=== PATIENT | female | born 1945 | race Caucasian/White ===

== ENCOUNTER 2020-06-23 11:04 | Outpatient (REF) | payer MEDICARE, SELFPAY ==
[2020-06-23 12:40] LABS: MANUAL DIFF FLAG NO
[2020-06-23 12:41] LABS: Basophils Percent Auto 0.7 % (0-2); Eosinophils Absolute Auto 0.2 X10*3/uL (0.0-0.4); Eosinophils Percent Auto 3.1 % (0-4); Hematocrit 42.1 % (37-47); Hemoglobin 13.7 g/dl (12.0-16.0); Imm Gran Abs Auto 0.02 X10*3/uL (0.00-0.03); Imm Gran Pct Auto 0.3 % (0.0-0.4); Lymphocytes Absolute Auto 2.1 X10*3/uL (1.2-4.9); Mean Corpuscular HGB Conc 32.5 g/dl (31.0-35.0); Mean Corpuscular Hemoglobin 28.7 pg (27.0-33.0); Mean Corpuscular Volume 88.3 fL (80-98); Mean Platelet Volume 10.6 fL (9.4-12.3); Monocytes Absolute Auto 0.5 X10*3/uL (0.1-1.2); Monocytes Percent Auto 7.8 % (2-11); Neutrophils Percent Auto 52.1 % (45-73); Platelet Count 272 X10*3/uL (160-400); Red Blood Count 4.77 X10*6/uL (4.20-5.50); Red Cell Distribution Width 14.8 % (11.0-16.0); White Blood Count 5.8 X10*3/uL (4.8-10.8)
[2020-06-24 08:18] LABS: SARS COV2 IgG Negative (Negative)
== END 2020-06-23 11:05 | disposition home or self-care (01) ==
LOC: HO.LAB 11:04
PROVIDERS: PCP Internal Medicine; Visit Provider Hospitalist
DX: Z01.84 Encounter for antibody response examination (principal); J45.901 Unspecified asthma with (acute) exacerbation; Z79.52 Long term (current) use of systemic steroids
CPT/HCPCS: 36415; 85025; 86769; 99214

== ENCOUNTER → 2020-07-02 11:14 | Outpatient (REF) | payer MEDICARE, SELFPAY | LOC: HO.SL 11:14 | PROVIDERS: Visit Provider Hospitalist | DX: Z13.89 Encounter for screening for other disorder (principal) ==

== ENCOUNTER → 2020-07-16 14:36 | Outpatient (BNVA) | payer MEDICARE, SELFPAY | PROVIDERS: Visit Provider Internal Medicine | DX: R06.00 Dyspnea, unspecified (principal); R05 Cough | CPT/HCPCS: 99212 ==

== ENCOUNTER → 2020-08-25 10:34 | Outpatient (BNVA) | payer MEDICARE, SELFPAY | PROVIDERS: PCP Internal Medicine; Visit Provider Hospitalist | DX: Z01.811 Encounter for preprocedural respiratory examination (principal); R05 Cough; J31.0 Chronic rhinitis; Z79.51 Long term (current) use of inhaled steroids | CPT/HCPCS: 99212 ==

== ENCOUNTER 2021-04-06 13:49 | Outpatient (REF) | payer MEDICARE, OTHER, SELFPAY ==
--- NOTE | ~2021-04-06 | XR_ITS ---
EXAMINATION: XR CHEST CLINICAL INFORMATION: Dyspnea COMPARISON: None TECHNIQUE: 2 views of the chest were obtained. FINDINGS: The cardiac and mediastinal contours are normal. The lungs are clear. There is no pleural effusion or pneumothorax. There is curvature of the thoracic spine to the right and degenerative change. There are degenerative changes of the left shoulder. XR/XR chest 2V IMPRESSION: No evidence for acute disease in the chest.
== END 2021-04-06 13:50 | disposition home or self-care (01) ==
LOC: HO.XRAY 13:49
PROVIDERS: PCP Internal Medicine; Visit Provider Hospitalist
DX: R06.00 Dyspnea, unspecified (principal); R05 Cough; J31.0 Chronic rhinitis; J45.40 Moderate persistent asthma, uncomplicated; Z87.891 Personal history of nicotine dependence; Z79.899 Other long term (current) drug therapy
CPT/HCPCS: 71046; 99212

== ENCOUNTER 2021-05-18 | Outpatient (REF) | payer MEDICARE, OTHER, SELFPAY | END 2021-05-18 00:01 | disposition home or self-care (01) | LOC: CF | PROVIDERS: Visit Provider Hospitalist | DX: R06.00 Dyspnea, unspecified (principal); R05 Cough; J31.0 Chronic rhinitis; J45.40 Moderate persistent asthma, uncomplicated; G47.33 Obstructive sleep apnea (adult) (pediatric); Z87.891 Personal history of nicotine dependence; Z88.8 Allergy status to other drugs, medicaments and biological substances; Z91.041 Radiographic dye allergy status | CPT/HCPCS: 99212 ==

== ENCOUNTER → 2021-09-23 13:00 | Outpatient (BNVA) | payer MEDICARE, OTHER, SELFPAY | PROVIDERS: PCP Internal Medicine; Visit Provider Hospitalist | DX: R06.00 Dyspnea, unspecified (principal); R05.9 Cough, unspecified; J31.0 Chronic rhinitis; J45.40 Moderate persistent asthma, uncomplicated | CPT/HCPCS: 99212 ==

== ENCOUNTER → 2021-12-10 13:17 | Outpatient (BNVA) | payer MEDICARE, OTHER, SELFPAY | PROVIDERS: PCP Internal Medicine; Visit Provider Hospitalist | DX: J45.40 Moderate persistent asthma, uncomplicated (principal); J31.0 Chronic rhinitis; R06.00 Dyspnea, unspecified; R05.9 Cough, unspecified | CPT/HCPCS: 99212 ==

== ENCOUNTER → 2022-06-21 10:58 | Outpatient (BNVA) | payer MEDICARE, OTHER, SELFPAY | PROVIDERS: PCP Internal Medicine; Visit Provider Nurse Practitioner Family | DX: G89.4 Chronic pain syndrome (principal); M25.511 Pain in right shoulder; M25.512 Pain in left shoulder; M79.7 Fibromyalgia; M47.816 Spondylosis without myelopathy or radiculopathy, lumbar region; M51.36 Other intervertebral disc degeneration, lumbar region; M79.604 Pain in right leg; M79.605 Pain in left leg; Z79.891 Long term (current) use of opiate analgesic; Z79.899 Other long term (current) drug therapy | CPT/HCPCS: 99202 ==

== ENCOUNTER 2022-07-07 | Outpatient (REF) | payer MEDICARE, OTHER, SELFPAY ==
--- NOTE | ~2022-07-07 | XR_ITS ---
EXAMINATION: XR SHOULDER, RIGHT XR SHOULDER, LEFT CLINICAL INFORMATION: Pain COMPARISON: None TECHNIQUE: 3 views of each shoulder. FINDINGS: Views of the left shoulder demonstrate narrowing of the glenohumeral joint with prominent spurring and sclerosis. No calcific tendinitis is appreciated. No significant degenerative change of the acromioclavicular joint is seen. There is no widening of the coracoclavicular space. Views of the right shoulder demonstrate severe narrowing of the glenohumeral joint with prominent spurring. No calcific tendinitis. There is some mild spurring about the acromioclavicular joint. No widening of the coracoclavicular space is seen. XR/XR shoulder LT min 2V IMPRESSION: Severe degenerative change of the glenohumeral joints bilaterally.
--- NOTE | ~2022-07-07 | XR_ITS ---
EXAMINATION: XR SHOULDER, RIGHT XR SHOULDER, LEFT CLINICAL INFORMATION: Pain COMPARISON: None TECHNIQUE: 3 views of each shoulder. FINDINGS: Views of the left shoulder demonstrate narrowing of the glenohumeral joint with prominent spurring and sclerosis. No calcific tendinitis is appreciated. No significant degenerative change of the acromioclavicular joint is seen. There is no widening of the coracoclavicular space. Views of the right shoulder demonstrate severe narrowing of the glenohumeral joint with prominent spurring. No calcific tendinitis. There is some mild spurring about the acromioclavicular joint. No widening of the coracoclavicular space is seen. XR/XR shoulder RT min 2V IMPRESSION: Severe degenerative change of the glenohumeral joints bilaterally.
== END 2022-07-07 00:01 | disposition home or self-care (01) ==
LOC: HO.HOSX
PROVIDERS: Visit Provider Physician Assistant
DX: M25.512 Pain in left shoulder (principal); M25.511 Pain in right shoulder; M19.011 Primary osteoarthritis, right shoulder; M19.012 Primary osteoarthritis, left shoulder; R20.0 Anesthesia of skin
CPT/HCPCS: 73030; 99202

== ENCOUNTER → 2022-07-18 09:01 | Outpatient (BNVA) | payer MEDICARE, OTHER, SELFPAY | PROVIDERS: PCP Internal Medicine; Visit Provider Nurse Practitioner Family | DX: M79.604 Pain in right leg (principal); M79.605 Pain in left leg; M19.011 Primary osteoarthritis, right shoulder; M19.012 Primary osteoarthritis, left shoulder; M25.511 Pain in right shoulder; M25.512 Pain in left shoulder; G89.4 Chronic pain syndrome | CPT/HCPCS: Q3014 ==

== ENCOUNTER → 2022-07-22 10:47 | Outpatient (BNVA) | payer MEDICARE, OTHER, SELFPAY | PROVIDERS: PCP Internal Medicine; Visit Provider Orthopaedic Surgery | DX: M19.011 Primary osteoarthritis, right shoulder (principal); M19.012 Primary osteoarthritis, left shoulder; M79.7 Fibromyalgia | CPT/HCPCS: 99212 ==

== ENCOUNTER → 2022-09-08 11:34 | Outpatient (BNVA) | payer MEDICARE, OTHER, SELFPAY | PROVIDERS: PCP Internal Medicine; Visit Provider Nurse Practitioner Family | DX: M19.011 Primary osteoarthritis, right shoulder (principal); M19.012 Primary osteoarthritis, left shoulder; M25.511 Pain in right shoulder; M25.512 Pain in left shoulder; F33.9 Major depressive disorder, recurrent, unspecified; G89.4 Chronic pain syndrome | CPT/HCPCS: Q3014 ==

== ENCOUNTER → 2022-10-04 10:24 | Outpatient (BNVA) | payer MEDICARE, OTHER, SELFPAY | PROVIDERS: PCP Internal Medicine; Visit Provider Nurse Practitioner Family | DX: M19.011 Primary osteoarthritis, right shoulder (principal); M19.012 Primary osteoarthritis, left shoulder; F33.9 Major depressive disorder, recurrent, unspecified; M47.816 Spondylosis without myelopathy or radiculopathy, lumbar region; M79.7 Fibromyalgia; G89.4 Chronic pain syndrome | CPT/HCPCS: 99212 ==

== ENCOUNTER → 2022-11-03 10:22 | Outpatient (BNVA) | payer MEDICARE, OTHER, SELFPAY | PROVIDERS: PCP Internal Medicine; Visit Provider Surgery Vascular Surgery | DX: I83.12 Varicose veins of left lower extremity with inflammation (principal) | CPT/HCPCS: 99202 ==

== ENCOUNTER 2022-12-20 10:21 | Outpatient (REF) | payer MEDICARE, OTHER, SELFPAY ==
--- NOTE | ~2022-12-20 | US_ITS ---
EXAMINATION: US LOWER EXTREMITY VENOUS (REFLUX EXAM), BILATERAL CLINICAL INDICATION: Varicose veins in the left lower extremity COMPARISON: None. TECHNIQUE: Color flow triplex imaging and compression Doppler was performed to evaluate both the deep and the superficial systems bilaterally. To evaluate the superficial system, the examination was performed in the upright position. Color-flow Doppler ultrasound and compression ultrasound were utilized. In addition, maneuvers were utilized to demonstrate reflux. FINDINGS: RIGHT: 1. DEEP VENOUS ULTRASOUND OF THE RIGHT LOWER EXTREMITY: Common Femoral Vein: Compressible, normal respiratory variation and augmented flow. Popliteal Vein: Compressible, normal augmentation. Deep Venous Reflux: There is no evidence of reflux in the deep system in either the common femoral vein or the popliteal vein. There is no evidence of a Bills's cyst. 2. SUPERFICIAL ULTRASOUND WITH DOPPLER OF RIGHT LOWER EXTREMITY: RIGHT GREAT SAPHENOUS VEIN: Saphenofemoral Junction: 9 mm. No reflux. Proximal Thigh: 5 mm. No reflux. Mid Thigh: 5 mm. 84 ms of reflux. Above Knee: 6 mm. No reflux. Below Knee: 3 mm. No reflux. Mid Calf: 4 mm. No reflux. Ankle: 4 mm. No reflux. DUPLICATED GREAT SAPHENOUS VEIN: None RIGHT SMALL SAPHENOUS VEIN: Proximal: 3 mm. No reflux. Distal: 3 mm. No reflux. LEFT: 1. DEEP VENOUS ULTRASOUND OF THE LEFT LOWER EXTREMITY: Common Femoral Vein: Compressible, normal respiratory variation and augmented flow. Popliteal Vein: Compressible, normal augmentation. Deep Venous Reflux: There is no evidence of reflux in the deep system in either the common femoral vein or the popliteal vein. There is no evidence of a Bills's cyst. 2. SUPERFICIAL ULTRASOUND WITH DOPPLER OF LEFT LOWER EXTREMITY: LEFT GREAT SAPHENOUS VEIN: Saphenofemoral Junction: 10 mm. No reflux. Proximal Thigh: 5 mm. No reflux. Mid Thigh: 4 mm. No reflux. Above Knee: 5 mm. No reflux. Below Knee: 5 mm. No reflux. Mid Calf: 3 mm. No reflux. Ankle: 4 mm. No reflux. DUPLICATED GREAT SAPHENOUS VEIN: None LEFT SMALL SAPHENOUS VEIN: Proximal: 2 mm. No reflux. Distal: 2 mm. No reflux. US/US venous duplex LE BI IMPRESSION: No evidence of bilateral lower extremity superficial varicosities with abnormal venous reflux. Abnormal lower extremity venous reflux times: Superficial and deep calf veins: >500 ms Femoropopliteal veins: >1000 ms Perforating veins: >350 ms Norberto N, Linda J, Castillo L, Jeannie LOUIS, Gaol SS, Thelma Choudhary, Negar WH. Definition of venous reflux in lower-extremity veins.J Vasc Surg. 2003; [id number]:[phone].
== END 2022-12-20 10:22 | disposition home or self-care (01) ==
LOC: HO.US 10:21
PROVIDERS: Visit Provider Surgery Vascular Surgery
DX: I83.12 Varicose veins of left lower extremity with inflammation (principal); I83.893 Varicose veins of bilateral lower extremities with other complications
CPT/HCPCS: 93970

== ENCOUNTER → 2022-12-27 11:02 | Outpatient (BNVA) | payer MEDICARE, OTHER, SELFPAY | PROVIDERS: PCP Internal Medicine; Visit Provider Surgery Vascular Surgery | DX: M79.605 Pain in left leg (principal) | CPT/HCPCS: 99212 ==

== ENCOUNTER 2023-05-16 11:19 | Outpatient (AMB) | payer MEDICARE, OTHER, SELFPAY ==
--- NOTE | 2023-05-16 11:20 | A.OFFVIS_ITS ---
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 She was last seen in our office in September, for discussion of diagnostic nerve blocks for both shoulders for potential RFA treatments. Patient reports she continues to be depressed and many antidepressants give her unpleasant side effects. She is considering ECT treatments at this point and notes that she had 2 ECTs in the past. Patient reports chronic daily shoulder pain negatively affects her daily activities, functioning, mood, sleep, enjoyment of life, social interactions and quality of life. She requests to proceed with diagnostic nerve blocks. Denies any recent cough, cold, infection, fever or other significant changes in medical history since last office visit. PRIOR: Patient presents in the office today to discuss interventional treatment options once again. She is accompanied by her . Patient reports due to depression, she has been having memory issues and mild cognitive decline. She is regularly sees psychologist and is undergoing medication adjustments. Reports insomnia and sleep disruptions due to night buchanan and significant bilateral shoulder pain. In my assessment today, patient demonstrated inadequate understanding of a potential peripheral nerve stimulation device placement, maintenance and operation. Given these changes, I offered patient diagnostic nerve blocks for both shoulders for potential RFA treatment for which patient and her have agreed. PRIOR: Patient presents today via telehealth encounter to discuss procedures for her bilateral shoulder pain. Patient continues to endorse significant bilateral shoulder pain with limited ROM. She was seen by an orthopedic surgeon last month and was recommended for shoulder replacement. Patient is not a candidate for steroid injections due to significantly high blood pressure elevations in the past. Today, the patient reports she is not considering pursuing any interventional treatment due to worsening of depression and cognitive issues. Patient reports she started on a new antidepressant, Auvelity, yesterday and has been followed regularly with her psychiatrist. 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 She has been also busy with running [employer] efforts for [employer] from her home as well taking care of her and dog. Patient denies any SI/HI or hallucinations. Patient reports she is depressed but not hopeless. She spends time meditating and praying a lot. She has been taking extra-strength Tylenol for her pain and this has provided her partial relief. PRIOR: Patient presents today via telehealth encounter for follow up and medication review. Patient reports she was evaluated by flight communications specialist on 07/07/22 and was offered cortisone injections as well total shoulder replacement surgery. Patient reports she has declined cortisone injections due to history of significant BP elevation after steroid injection and was sent to ER with BP over 200s. Patient continues to report severe pain in her bilateral shoulders, left worse than right and difficulty with overhead reaches and increased pain with any movement, bilateral hand pain with numbness and tingling. Patient reports she is scheduled to follow up with Dr. Jolly this week to discuss surgery and post op rehabilitation. Recent bilateral shoulder xray consistent with significant OA of both shoulders. Patient reports Celebrex was effective initially but not anymore. She denies any side effects. Patient is awaiting to receive compound topical pain cream from [email or web address] and has been taking various forms of edible CBD with mild pain relief. 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 Patient reports she has seen Dr. Rendon in the past for bilateral leg pain for venous insufficiency and would like to establish care with [facility] vascular services due to chronic leg pain and significant swelling in her legs. I will refer patient to Dr. Urrutia for further evaluation and possible lymphedema treatment. She has history of periodically taking diuretics, including HCTZ and Lasix with minimal decrease in her lower legs edema. She continues wearing compressions stockings. PRIOR: Patient is a pleasant 77 years female presents today with multiple pain generators, including fibromyalgia, bilateral shoulder pain, bilateral hand pain, and bilateral lower extremity pain and weakness with associated numbness, tingling and burning sensations in her both hands and feet. Her main concern today is left shoulder pain that has worsened over the past 4 weeks, with significantly decreased range of motions of both shoulders. She has been under the care of Dr. Case for many years who treated her for back pain with injections and shoulder pain. Patient reports she was told by Dr. Case 5 years ago she had ?small rotator cuff tears? in both shoulders and was referred to orthopedic surgeon surgery but could not undergo through consultation and surgery due to family commitments at that time. She is also currently being treated by Dr. Francisco for multiple pain generators and was referred to neurology and EMG studies through [facility]. She also sees Dr. Rendon from vascular services and was advised to wear compression stockings and elevate her legs. Patient is wearing compression stockings today. She states her recent bilateral leg US duplex was negative for DVT. Pain is described as intermittent aching, stabbing, sharp, tingling, pins and needles, shooting, tiring, exhausting, numb and throbbing. Her worst pain is in the evenings and middle of the night with highest pain intensity at 10/10 and lowest pain intensity at 6/10. Pain is affecting her daily activities, functioning, sleep, mood, social interactions and quality of life. Patient states she was recently in ER for left shoulder pain and received Toradol IM which was effective. She also has tried to manage her pain with CBD gummies, diclofenac gel, Tramadol, Lyrica, APAP arthritis, and ibuprofen for pain. Patient has been referred to start formal PT but has not scheduled it yet. Patient denies lower back pain today. She reports that her bilateral lower legs pain and weakness is not radiating from her back. Patient states she used to be able to walk up to 45 minutes with cane now she can only tolerate 5 minutes of walking without pain. Her lumbar spine MRI on 04/28/22 showed grade 1 anterolisthesis of L4 on L5. There are multilevel posterior disc protrusions with impingement on exiting nerve roots. She also has bilateral multilevel mild to moderate facet arthropathy and degenerative endplate contour changes with fatty endplate signal at L5-S1 and posteriorly at L3-L4. Patient states previous back injections by Dr. Case were not effective. Patient has a positive SLR test worsened with dorsiflexion on the right on today?s exam. She reports right lateral leg stabbing pain. She denies any back surgery. Denies bowel or bladder incontinence or saddle anesthesia. Ambulates with slow antalgic gait with assistance of cane. Patient reports she is allergic to steroids and IV dye contrast and reports she had to be evaluated in ER after last cortisone injection due to allergic reaction. [facility] Medical History Asthma Asthma exacerbation Bronchitis Chronic rhinitis Cough Dyspnea on exertion Fibromyalgia Major depression, recurrent OTILIA (obstructive sleep apnea) Ovarian cancer Pre-op chest exam Family History Other HTN (hypertension) Social History Patient Tobacco Use Status: Former Tobacco user Tobacco use type: Cigarette Years Smoked: 25 years Review of Systems Const All systems reviewed & are unremarkable except as noted in HPI and below Neuro Denies confusion Psych Denies confusion Physical Exam Vital Signs: Last Vital Signs Pulse 56 05/16/23 11:24 BP 138/65 05/16/23 11:24 Pulse Ox 97 05/16/23 11:24 Oxygen Delivery Method Room Air 05/16/23 11:24 BMI result Body Mass Index 34.9 Const General: cooperative, no acute distress, alert, awake, anxious and well groomed; No confusion Nutritional Appearance: average body habitus and well nourished Orientation/consciousness: patient oriented x3 and No confusion HEENT Head: Yes normal to inspection and Yes normocephalic Eyes General: appearance normal, both eyes and all related structures Resp Effort & Inspection: normal respiratory effort, able to speak in complete sentences and no cough Cardio Jugular venous distension: no JVD Rate: regular rate Peripheral pulses: Peripheral pulses 2+ throughout Skin General skin exam: no rashes or lesions noted Neuro General: patient oriented x3, Normal light touch and pain sensation, no focal motor deficits and No confusion Cognition (Neuro): normal cognition Gait exam (Neuro): Antalgic gait present Motor exam (neuro): no tremor noted and Motor abnormalities not present Extrem Other: Bilateral Shoulders: Normal to inspection. No erythema or ecchymosis. Limited ROM, left worse than right due to pain. Patient is able to reach her back pocket with right hand but has difficulty with overhead reach bilaterally, left worse than right. Significant tenderness to palpation to the anterior aspects both shoulders. General: Yes capillary refill normal, Yes no clubbing, cyanosis or edema and Yes no calf tenderness Psych Appearance: grossly normal and well kempt Mental Status: mental status grossly normal Speech and movement: Normal speech and movement present and Clear speech present Affect: normal affect, Sad affect present and Anxious affect present Attitude: cooperative Thought process: Normal thought process present and Circumstantial thought process present Thought content: Normal thought content present, suicidality (none), no hallucinations and Depressive thoughts present Insight: Good insight present (Psych) Judgement: Good judgement present (Psych) Results Reviewed Results Reviewed: XR SHOULDER, RIGHT XR SHOULDER, LEFT 07/07/22 FINDINGS: Views of the left shoulder demonstrate narrowing of the glenohumeral joint with prominent spurring and sclerosis. No calcific tendinitis is appreciated. No significant degenerative change of the acromioclavicular joint is seen. There is no widening of the coracoclavicular space. Views of the right shoulder demonstrate severe narrowing of the glenohumeral joint with prominent spurring. No calcific tendinitis. There is some mild spurring about the acromioclavicular joint. No widening of the coracoclavicular space is seen. IMPRESSION: Severe degenerative change of the glenohumeral joints bilaterally. Assessment & Plan Assessment & Plan (1) Major depression, recurrent: Code(s): F33.9 - Major depressive disorder, recurrent, unspecified (2) Osteoarthritis of shoulders, bilateral: Code(s): M19.011 - Primary osteoarthritis, right shoulder; M19.012 - Primary osteoarthritis, left shoulder (3) Chronic pain syndrome: Code(s): G89.4 - Chronic pain syndrome (4) Bilateral shoulder pain: Code(s): M25.511 - Pain in right shoulder; M25.512 - Pain in left shoulder Plan Proceed with Bilateral diagnostic suprascapular, axillary and lateral pectoral nerve blocks for consideration of cooled RFA of bilateral shoulder joints one we ek apart if there's a successful response to the diagnostic blocks. All concerns and questions were answered and patient agreed with the plan. Follow up after injections and sooner if needed. Justification for interventional therapy: ? Patient with average pain > 6/10 ? Patient has exhausted conservative therapy, NSAIDs ? Patient unable to tolerate physical therapy due to pain The risks, consequences, alternatives, and benefits of various treatment options were discussed with the patient in great detail, including conservative management, injections and procedures. Coding Level of Care Code Est Pt Level 3 (37890) Diagnoses Major depression, recurrent F33.9 Osteoarthritis of shoulders, bilateral M19.011; M19.012 Chronic pain syndrome G89.4 Bilateral shoulder pain M25.511; M25.512
[2023-05-16 11:24] VITALS: BP 138/65; PULSE 56; O2SAT 97; BMI 34.9
== END 2023-05-16 11:45 | disposition home or self-care (01) ==
PROVIDERS: PCP Internal Medicine; Visit Provider Nurse Practitioner Family
DX: G89.4 Chronic pain syndrome (principal); M19.011 Primary osteoarthritis, right shoulder; M19.012 Primary osteoarthritis, left shoulder; F33.9 Major depressive disorder, recurrent, unspecified
CPT/HCPCS: 99213

== ENCOUNTER → 2023-05-16 11:19 | Outpatient (BNVA) | payer MEDICARE, OTHER, SELFPAY | PROVIDERS: PCP Internal Medicine; Visit Provider Nurse Practitioner Family | DX: G89.4 Chronic pain syndrome (principal); M19.011 Primary osteoarthritis, right shoulder; M19.012 Primary osteoarthritis, left shoulder; M25.511 Pain in right shoulder; M25.512 Pain in left shoulder; F33.9 Major depressive disorder, recurrent, unspecified | CPT/HCPCS: 99212 ==

== ENCOUNTER 2023-10-06 10:52 | Outpatient (AMB) | payer MEDICARE, OTHER, SELFPAY ==
--- NOTE | 2023-10-06 10:54 | MHC.OFFVIS ---
Intake Vital Signs 10/06/23 10:56 Height 5 ft 3 in Weight 202 lb BMI 35.8 BP 187/81 H Blood Pressure Location Rt brachial Position Sitting Respiration 12 Pulse 70 Pulse Source Pulse Oximeter Pulse Oximetry (%) 95 Oxygen Delivery Method Room Air Intake Visit Reasons: rosa Dx suprascap/axillary/lateral pectoral NB Allergies Iodinated Contrast Media Allergy (Severe, Verified 10/09/23 11:32) Tachycardia Keflex Allergy (Severe, Uncoded 10/06/23 10:58) Hives Steroids Allergy (Severe, Uncoded 10/06/23 10:58) Hives Medication List - Last Reconciled 10/06/23 by Elisa White LPN acetaminophen ER 1,300 mg (2 x 650 mg) PO Q12H PRN 30 days cholecalciferol (vitamin D3) 1,250 mcg PO QWEEK clonazepam mg PO cranberry 1,200 mg PO DAILY cyclobenzaprine mg PO Q8H PRN diclofenac sodium 1% (Arthritis Pain (diclofenac)) 4 grams topical QID PRN duloxetine mg PO furosemide mg PO ipratropium bromide 2 sprays intranasal TID PRN lamotrigine mg PO DAILY lidocaine-prilocaine 2.5-2.5 % topical metoprolol succinate ER mg PO BID omega-3 fatty acids (Fish Oil Concentrate) 1,000 mg PO DAILY potassium chloride ER mEq PO HPI rosa Dx suprascap/axillary/lateral pectoral NB HPI Details 78-year-old female who presents today to the office for a bilateral diagnostic injection of the articular branches of the suprascapular and axillary nerves. Denies any recent cough, cold, infection, fever or other significant changes in medical history since last office visit. She reports bilateral shoulder pain. She has difficulty sleeping and sleeps about three hours at night. She has to get out of bed to change sides at night. She uses two pillows. She feels tired of turning on her sides while sleeping. She had a cortisone injection in her knee, but her blood pressure was elevated, and she had to visit the ER. She has noticed fluctuation in her blood pressure, reading as high as 180 and as low as 90. She is taking clonazepam 0.5 B.I.D. She is allergic to duloxetine. [facility] Medical History Major depression, recurrent Fibromyalgia Asthma Chronic rhinitis Pre-op chest exam Cough Dyspnea on exertion Ovarian cancer OTILIA (obstructive sleep apnea) Asthma exacerbation Bronchitis Family History Other HTN (hypertension) Social History Patient Tobacco Use Status: Former Tobacco user Tobacco use type: Cigarette Years Smoked: 25 years Review of Systems Const All systems reviewed & are unremarkable except as noted in HPI and below Physical Exam Vital Signs: Last Vital Signs Pulse 70 10/06/23 10:56 Resp 12 10/06/23 10:56 BP 187/81 H 10/06/23 10:56 Pulse Ox 95 10/06/23 10:56 Oxygen Delivery Method Room Air 10/06/23 10:56 BMI result Body Mass Index 35.8 General: Appears afebrile. Alert and oriented. Mood and affect appropriate. Follows and participates in conversation appropriately. Respiratory effort is unlabored. Able to transition from sit to stand unassisted. Ambulates with bilaterally normal heel strike and toe off. Office Procedures Nerve Block Details: Bilateral diagnostic suprascapular and axillary nerve articular branches block, ultrasound guided. After obtaining written consent, pre-procedure blood pressure and heart rate were stable and recorded in the nursing record. Standard monitors were applied. The patient was placed in the sitting position. The area overlying the peripheral nerves was widely prepped with chloraprep and allowed to dry. Using ultrasound, the appropriate landmarks were identified. The lateral border of the glenoid and the lateral border of the humoral head were visualized under ultrasound. A 2 ml of bupivacaine 0.5% was injected at each target covering the articular branches of the suprascapular and the axillary nerve. The same procedure was repeated on the other side. The needles were removed, skin cleansed and a sterile bandage was applied. The patient tolerated the procedure well and no complications were encountered. Following the procedure the patient's vital signs were stable. The patient was discharged home in good condition with post-procedural instructions. Time Out: Immediately prior to the procedure, the following was verbally confirmed that there is a signed consent form and that the correct patient, planned procedure, site and side are consistent with documentation and that necessary equipment and/or blood products are available prior to the start of the case. Complications: none EBL: <5 cc An ultrasound image of the injection was taken and stored in the permanent record. 77680 - Axillary (Bilateral) 70558 - Suprascapular (Bilateral) Procedure code (CPT) selection complete Results Reviewed Results Reviewed: No imaging is available for review. Assessment & Plan Assessment & Plan (1) Bilateral shoulder pain: Code(s): M25.511 - Pain in right shoulder; M25.512 - Pain in left shoulder Plan Patient is status post bilateral diagnostic suprascapular and axillary nerve block, ultrasound guided. Patient tolerated procedure well and was discharged home in stable condition with discharge instructions. All questions were answered. We will follow-up in two weeks via telephone or in clinic to assess response to therapy. A follow-up appointment was made during today's visit. Scribed for Dr. Davies by Avery Sarah, dental assistant medical assistant, on 10/06/2023. I, Dr. Davies, have personally reviewed and agree with the information entered by the scribe. Coding Level of Care Code Procedure Only Diagnoses Bilateral shoulder pain M25.511; M25.512 CPT Codes Nerve Block - Nerve Block 3: 93473 - Axillary ([id number]) Nerve Block - Nerve Block 4: 65391 - Suprascapular ([id number])
[2023-10-06 10:56] VITALS: BP 187/81; PULSE 70; RESP 12; O2SAT 95; BMI 35.8
== END 2023-10-06 11:35 | disposition home or self-care (01) ==
PROVIDERS: PCP Internal Medicine; Visit Provider Internal Medicine
DX: M25.511 Pain in right shoulder (principal); M25.512 Pain in left shoulder
CPT/HCPCS: 64417; 64418; 76942

== ENCOUNTER → 2023-10-06 10:52 | Outpatient (BNVA) | payer MEDICARE, OTHER, SELFPAY | PROVIDERS: PCP Internal Medicine; Visit Provider Internal Medicine | DX: M25.511 Pain in right shoulder (principal); M25.551 Pain in right hip | CPT/HCPCS: 64417; 64418; J0665 ==

== ENCOUNTER 2023-10-09 11:31 | Outpatient (AMB) | payer MEDICARE, OTHER, SELFPAY ==
[2023-10-09 11:31] VITALS: BMI 36.7
--- NOTE | 2023-10-09 11:31 | MHC.OFFVIS ---
Intake Vital Signs 10/09/23 11:31 Height 5 ft 3 in Weight 207 lb BMI 36.7 Intake Visit Reasons: s/p rosa Dx suprascap/axillary/lateral pectoral NB Altitude Chamber Technician Required: No Allergies Iodinated Contrast Media Allergy (Severe, Verified 10/09/23 11:32) Tachycardia Keflex Allergy (Severe, Uncoded 10/06/23 10:58) Hives Steroids Allergy (Severe, Uncoded 10/06/23 10:58) Hives HPI HPI Comments History of Present Illness Details Patient presents today to assess response to bilateral diagnostic suprascapular and axillary nerve blocks on 10/06/[address] Davies. Patient reports 0% pain relief since injections and reports right shoulder pain is worse than her left shoulder. Reports no improvement in her functioning or range of motion following the injections. Denies any numbness in her shoulder areas after injections for that day. She notes that injection procedure was very traumatic for her and she no longer wishes to pursue any further interventional treatments. Patient reports she will follow up with her Orthopedic provider for next steps. Patient reports her depression and anxiety has been well managed and she regularly sees her Psychologist Isabel Christianson. Denies any recent cough, cold, infection, fever, any significant changes in her medical history, medications or recent hospitalizations. Past Procedures: 10/06/23: Bilateral diagnostic suprascapular and axillary nerve blocks-0% pain relief PRIOR: Patient presents today for follow up for bilateral shoulder pain that has been worsening. She was last seen in our office in September, for discussion of diagnostic nerve blocks for both shoulders for potential RFA treatments. Patient reports she continues to be depressed and many antidepressants give her unpleasant side effects. She is considering ECT treatments at this point and notes that she had 2 ECTs in the past. Patient reports chronic daily shoulder pain negatively affects her daily activities, functioning, mood, sleep, enjoyment of life, social interactions and quality of life. She requests to proceed with diagnostic nerve blocks. Denies any recent cough, cold, infection, fever or other significant changes in medical history since last office visit. PRIOR: Patient presents in the office today to discuss interventional treatment options once again. She is accompanied by her . Patient reports due to depression, she has been having memory issues and mild cognitive decline. She is regularly sees psychologist and is undergoing medication adjustments. Reports insomnia and sleep disruptions due to night buchanan and significant bilateral shoulder pain. In my assessment today, patient demonstrated inadequate understanding of a potential peripheral nerve stimulation device placement, maintenance and operation. Given these changes, I offered patient diagnostic nerve blocks for both shoulders for potential RFA treatment for which patient and her have agreed. PRIOR: Patient presents today via telehealth encounter to discuss procedures for her bilateral shoulder pain. Patient continues to endorse significant bilateral shoulder pain with limited ROM. She was seen by an orthopedic surgeon last month and was recommended for shoulder replacement. Patient is not a candidate for steroid injections due to significantly high blood pressure elevations in the past. Today, the patient reports she is not considering pursuing any interventional treatment due to worsening of depression and cognitive issues. Patient reports she started on a new antidepressant, Auvelity, yesterday and has been followed regularly with her psychiatrist. 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 Patient denies any SI/HI or hallucinations. Patient reports she is depressed but not hopeless. She spends time meditating and praying a lot. She has been taking extra-strength Tylenol for her pain and this has provided her partial relief. PRIOR: Patient presents today via telehealth encounter for follow up and medication review. Patient reports she was evaluated by orthopedic technician on 07/07/22 and was offered cortisone injections as well total shoulder replacement surgery. Patient reports she has declined cortisone injections due to history of significant BP elevation after steroid injection and was sent to ER with BP over 200s. Patient continues to report severe pain in her bilateral shoulders, left worse than right and difficulty with overhead reaches and increased pain with any movement, bilateral hand pain with numbness and tingling. Patient reports she is scheduled to follow up with Dr. Jolly this week to discuss surgery and post op rehabilitation. Recent bilateral shoulder xray consistent with significant OA of both shoulders. Patient reports Celebrex was effective initially but not anymore. She denies any side effects. Patient is awaiting to receive compound topical pain cream from [facility] and has been taking various forms of edible CBD with mild pain relief. Patient is not interested in non-surgical interventions treatments with increased pain in both shoulders and is leaning towards undergoing total shoulder replacement for custodial pain relief. Patient reports she has seen Dr. Rendon in the past for bilateral leg pain for venous insufficiency and would like to establish care with [facility] vascular services due to chronic leg pain and significant swelling in her legs. I will refer patient to Dr. Urrutia for further evaluation and possible lymphedema treatment. She has history of periodically taking diuretics, including HCTZ and Lasix with minimal decrease in her lower legs edema. She continues wearing compressions stockings. PRIOR: Patient is a pleasant 77 years female presents today with multiple pain generators, including fibromyalgia, bilateral shoulder pain, bilateral hand pain, and bilateral lower extremity pain and weakness with associated numbness, tingling and burning sensations in her both hands and feet. Her main concern today is left shoulder pain that has worsened over the past 4 weeks, with significantly decreased range of motions of both shoulders. She has been under the care of Dr. Case for many years who treated her for back pain with injections and shoulder pain. Patient reports she was told by Dr. Case 5 years ago she had ?small rotator cuff tears? in both shoulders and was referred to orthopedic surgeon surgery but could not undergo through consultation and surgery due to family commitments at that time. She is also currently being treated by Dr. Francisco for multiple pain generators and was referred to neurology and EMG studies through [facility]. She also sees Dr. Rendon from vascular services and was advised to wear compression stockings and elevate her legs. Patient is wearing compression stockings today. She states her recent bilateral leg US duplex was negative for DVT. Pain is described as intermittent aching, stabbing, sharp, tingling, pins and needles, shooting, tiring, exhausting, numb and throbbing. Her worst pain is in the evenings and middle of the night with highest pain intensity at 10/10 and lowest pain intensity at 6/10. Pain is affecting her daily activities, functioning, sleep, mood, social interactions and quality of life. Patient states she was recently in ER for left shoulder pain and received Toradol IM which was effective. She also has tried to manage her pain with CBD gummies, diclofenac gel, Tramadol, Lyrica, APAP arthritis, and ibuprofen for pain. Patient has been referred to start formal PT but has not scheduled it yet. Patient denies lower back pain today. She reports that her bilateral lower legs pain and weakness is not radiating from her back. Patient states she used to be able to walk up to 45 minutes with cane now she can only tolerate 5 minutes of walking without pain. Her lumbar spine MRI on 04/28/22 showed grade 1 anterolisthesis of L4 on L5. There are multilevel posterior disc protrusions with impingement on exiting nerve roots. She also has bilateral multilevel mild to moderate facet arthropathy and degenerative endplate contour changes with fatty endplate signal at L5-S1 and posteriorly at L3-L4. Patient states previous back injections by Dr. Case were not effective. Patient has a positive SLR test worsened with dorsiflexion on the right on today?s exam. She reports right lateral leg stabbing pain. She denies any back surgery. Denies bowel or bladder incontinence or saddle anesthesia. Ambulates with slow antalgic gait with assistance of cane. Patient reports she is allergic to steroids and IV dye contrast and reports she had to be evaluated in ER after last cortisone injection due to allergic reaction. [facility] Medical History Major depression, recurrent Fibromyalgia Asthma Chronic rhinitis Pre-op chest exam Cough Dyspnea on exertion Ovarian cancer OTILIA (obstructive sleep apnea) Asthma exacerbation Bronchitis Family History Other HTN (hypertension) Social History Patient Tobacco Use Status: Former Tobacco user Tobacco use type: Cigarette Years Smoked: 25 years Review of Systems Const All systems reviewed & are unremarkable except as noted in HPI and below ENT Reports Normal hearing present Neuro Reports Normal hearing present and Denies confusion Psych Denies confusion Physical Exam Vital Signs: BMI result Body Mass Index 36.7 Const General: cooperative, alert and awake; No confusion Orientation/consciousness: patient oriented x3 and No confusion Resp Effort & Inspection: able to speak in complete sentences, no audible wheezes and no cough Neuro General: patient oriented x3 and No confusion Cranial nerves: Yes Normal hearing present Cognition (Neuro): normal cognition Psych Mental Status: mental status grossly normal Speech and movement: Clear speech present Affect: normal affect Attitude: cooperative Thought process: Normal thought process present Thought content: Normal thought content present and No Depressive thoughts present Insight: Good insight present (Psych) Judgement: Good judgement present (Psych) Results Reviewed Results Reviewed: XR SHOULDER, RIGHT XR SHOULDER, LEFT 07/07/22 FINDINGS: Views of the left shoulder demonstrate narrowing of the glenohumeral joint with prominent spurring and sclerosis. No calcific tendinitis is appreciated. No significant degenerative change of the acromioclavicular joint is seen. There is no widening of the coracoclavicular space. Views of the right shoulder demonstrate severe narrowing of the glenohumeral joint with prominent spurring. No calcific tendinitis. There is some mild spurring about the acromioclavicular joint. No widening of the coracoclavicular space is seen. IMPRESSION: Severe degenerative change of the glenohumeral joints bilaterally. Assessment & Plan Assessment & Plan (1) Osteoarthritis of shoulders, bilateral: Code(s): M19.011 - Primary osteoarthritis, right shoulder; M19.012 - Primary osteoarthritis, left shoulder (2) Bilateral shoulder pain: Code(s): M25.511 - Pain in right shoulder; M25.512 - Pain in left shoulder (3) Fibromyalgia: Code(s): M79.7 - Fibromyalgia Plan Patient is status post bilateral diagnostic suprascapular and axillary nerve block, ultrasound guided on 10/06/23 with no pain relief. Patient reports no improvement in her functioning or ROM. Patient is not interested in repeating injections in order to establish reproducible response to the treatment for potential RFA procedure. Patient will follow up with Orthopedic provider for severe bilateral shoulder OA for next steps. All questions and concerns have been answered and patient agreed with the plan. Follow up as needed. I hereby testify that I spent 16 minutes in conversation with this patient as well as with planning and coordinating care for this patient and organizing this note. Telehealth Telehealth Location of provider rendering services: practice address Location of patient: address on file Patient Identification confirmed using: Name, : Yes Telehealth method: voice only Patient verbally consented to treatment: Yes Patient verbally consented to billing insurance company: Yes Patient informed of any privacy concerns related to visit: Yes Minutes spent on Phone/Video with Pt.: 16 Coding Level of Care Code Tele Est Pt Level 3 (37885) Diagnoses Osteoarthritis of shoulders, bilateral M19.011; M19.012 Bilateral shoulder pain M25.511; M25.512 Fibromyalgia M79.7
== END 2023-10-09 11:48 | disposition home or self-care (01) ==
LOC: HO.PMC 11:31
PROVIDERS: PCP Internal Medicine; Visit Provider Nurse Practitioner Family
DX: M19.011 Primary osteoarthritis, right shoulder (principal); M19.012 Primary osteoarthritis, left shoulder; M25.511 Pain in right shoulder; M25.512 Pain in left shoulder; M79.7 Fibromyalgia
CPT/HCPCS: 99442

== ENCOUNTER → 2023-10-09 11:31 | Outpatient (BNVA) | payer MEDICARE, OTHER, SELFPAY | PROVIDERS: PCP Internal Medicine; Visit Provider Nurse Practitioner Family ==

== ENCOUNTER 2024-04-10 09:25 | Outpatient (AMB) | payer MEDICARE, OTHER, SELFPAY ==
--- NOTE | 2024-04-10 09:31 | A.OFFVIS_ITS ---
Vital Signs 04/10/24 09:32 Height 5 ft 3 in Weight 203 lb BMI 36.0 Pulse 60 Pulse Source Pulse Oximeter Pulse Oximetry (%) 95 Oxygen Delivery Method Room Air Intake Visit Reasons: Shortness of breath Principle Software Engineer Required: No Allergies Iodinated Contrast Media Allergy (Severe, Verified 04/10/24 09:33) Tachycardia Keflex Allergy (Severe, Uncoded 04/10/24 09:33) Hives Steroids Allergy (Severe, Uncoded 04/10/24 09:33) Hives HPI Comments Details: the patient is a 79-year-old woman with a known history of ovarian cancer presenting with worsening dyspnea. She was evaluated several weeks ago and she was feeling a little better and her cough also seen better after stopping the Curtis inhibitor. However, right after that she started developing worsening cough along with shortness of breath. Moderate severity. She did call the office in the doxycycline was prescribed. She took for the weekend she started developing significant GI side effects. She also did not feel any better. She did call the office in refer her to go to an urgent care. The patient was tested for the flu and also tested for COVID-19 via nasal swab PCR which were both negative. She is hesitant to believe that because she did not feel that it was properly done. In the meantime I did send her a course of azithromycin to take instead, but, the patient has not started as of yet. She came today for sick visit. She was noted to be audibly wheezing bilaterally. She was given levalbuterol via nebulizer with improving her coughing wheezing. The patient needs to start the azithromycin and also start prednisone for the wheezing. She has had bad reactions to prednisone in the past, therefore, I will give her lower dose. She also had a chest x-ray while or urgent care which per the patient's report it was without any evidence of any acute disease. To note the patient was not treated with any medicines at the urgent care. 04/06/2021 the patient is here for pulmonary follow-up visit. The patient is presenting with worsening shortness of breath. Even minimal activity resulting significant shortness of breath. the shortness of breath and is not associated with any chest pressure pain. She states that she did follow-up with cardiology is going to some point she did have a stress test which for for the patient she denies any ischemic changes. Apparently when she ambulates she does become symptomatic but she her pulse ox is not drop. She has been using Advair for some time but she is no longer using the Advair. I explained to the patient that we will maximize respiratory therapy to see if there is improvement. But, this likely that her shortness of breath is multifactorial. 05/18/2021 the patient is here for a pulmonary follow-up visit. The patient did not have her pulmonary function studies which she did not feel that it was going to be helpful. She did have a chest x-ray that personally reviewed demonstrating no acute disease. She feels that her shortness of breath is mainly from her nasal congestion and him to breathe through her mouth. Currently she is not doing any therapies for nasal congestion or rhinitis. She denies any significant postnasal drip or drainage from her nose just congestion and difficulty breathing through her nose. Moderate severity. She did try the Trelegy inhaler which is not helpful. She still has a rescue inhaler that she can use as needed. Explained to her that the upper in the lower respiratory tract may be affected in therefore her short-acting beta agonist may be helpful at times. Will give her additional therapies for her nasal congestion and she she also should start with sinus rinsing. She is not able to the Neti bottle but she probably can do a nasal saline spray solution. The meantime she will co ntinue with current therapy and follow-up in the springtime or sooner if she develops any worsening symptoms. 09/23/2021 the patient is here for a pulmonary follow-up visit. She has not had any significant improvement. She still complains of dyspnea on exertion in even dyspnea when she is sitting. Her breathing is very shallow and she has a hard times breathing through her nose. During the last visit we start her on 2 nasal sprays in addition to nasal rinsing. She did start the therapy however she stops her respiratory inhalers. The patient does not want to take any pills due to her significant allergies. Again we reviewed her chest x-ray demonstrating no acute disease. She did have allergy testing at some point in the fall 2020 just for mold found to have no significant allergies sick except for slight equivocal reaction to Mine albicans. This is unlikely to be clinically significant. We do not have any other allergy testing. The patient should have formal allergy testing and should have a formal ENT evaluation. She recently was seen by ENT for years. I will have her referred back to ENT for her complete nasal evaluation and also for allergy testing. In the meantime the patient can try Afrin times 3-5 days to see if she has any significant improvement in the congestion. We did also try Atrovent nasal spray if that is not helpful. The patient also was recommended to go back on Trelegy. She is reluctant again to use any singular or any medications per we talked about the importance of deep breathing exercises. She is going to looking to online programs at this time. 12/10/2021 the patient is here for pulmonary follow-up visit. She feels about the same. Although she is getting some relief with some of the medication. She did finally make it to see ENT. She did have allergy testing which demonstrates some Environmental allergies. The patient is willing to use nasal or topical therapy. However, she is reluctant to use any oral medications specially because she has been having issues with insomnia. I did encourage her to consider use starting singular as it would be helpful to potentially use at nighttime which may help her with her sleep. The patient consider at this time. She also has been using the Trelegy and has been helpful. However, she only uses it as needed. Explained to her that this is not an helper urgently. I w ill switch her to Symbicort at this time. 04/10/2024 the patient is here for a pulmonary follow-up visit. The patient had been doing well until recently when she developed COVID. After COVID she dev eloped worsening cough chest congestion chest tightness. Moderate severity. She did went to an urgent care. At the urgent care she did have a chest x-ray and she was told she had pneumonia. She was started on antibiotics. She is starting to feel better. She does have a rescue inhaler. She is not using any maintenance inhalers right now. We did go over the instructions on how to use the inhaler correctly. Although I do believe that she needs a maintenance inhaler therefore I will send her Wixela to the pharmacy. If is still expensive she will call to see what else we can provide her. The patient should also have a chest x-ray to make sure that the pneumonia findings have subsided in the coming weeks. And she will follow-up in 2-3 months. If she has any worsening symptoms prior to that she will call for an earlier assessment. [facility] Medical History Major depression, recurrent Fibromyalgia Asthma Chronic rhinitis Pre-op chest exam Cough Dyspnea on exertion Ovarian cancer OTILIA (obstructive sleep apnea) Asthma exacerbation Bronchitis Family History Other HTN (hypertension) Social History Patient Tobacco Use Status: Former Tobacco user Tobacco use type: Cigarette Years Smoked: 25 years Review of Systems Const Denies night sweats ENT Denies change in voice, Denies lip swelling, Denies mouth pain, Reports nasal congestion, Reports nasal discharge and Denies tongue swelling Card Denies chest pain and Reports dyspnea on exertion Resp Reports cough, Reports dyspnea on exertion and Reports wheezing GI Denies abdominal pain Musc Denies no additional complaints Neuro Denies Neuro-related abnormal movements Psych Denies no additional complaints Jalil/Lymph Denies easy bleeding and Denies lymphadenopathy Aller/Immun Denies lip swelling, Denies tongue swelling and Reports wheezing Physical Exam Vital Signs: Last Vital Signs Pulse 60 04/10/24 09:32 Pulse Ox 95 04/10/24 09:32 Oxygen Delivery Method Room Air 04/10/24 09:32 BMI result Body Mass Index 36.0 Const General: alert Neck Neck: Yes normal visual inspection, Yes full ROM and Yes no lymphadenopathy Chest Chest palpation & inspection: normal inspection of the chest Resp Effort & Inspection: normal respiratory effort and prolonged expiratory phase Auscultation: diminished lung sounds Cardio Rate: regular rate Rhythm: regular rhythm Heart sounds: S1 normal heart sound present and S2 normal heart sound present GI Palpation (GI): Soft to palpation and nontender Auscultation: normal bowel sounds Skin General skin exam: rashes and/or lesions noted Assessment & Plan Assessment & Plan (1) Dyspnea on exertion: Comment: Code(s): R06.00 - Dyspnea, unspecified Category: Medical (2) Cough: Comment: probably has reactive airways. Better Code(s): R05 - Cough Category: Medical Qualifiers: Cough type: chronic Qualified Code(s): R05.3 - Chronic cough (3) Chronic rhinitis: Code(s): J31.0 - Chronic rhinitis Category: Medical (4) Asthma: Code(s): J45.909 - Unspecified asthma, uncomplicated Category: Medical Qualifiers: Asthma complication type: uncomplicated Asthma persistence: persistent Asthma severity: moderate Qualified Code(s): J45.40 - Moderate persistent asthma, uncomplicated Plan Start Airduo TOMASZ as needed CXR follow-up in 3-4 months Orders: Orders XR chest 2V Today J40 - Bronchitis, not specified as acute or chronic Medications: New fluticasone propion-salmeterol 250-50 mcg/dose (Wixela Inhub) 1 inh inhalation Q12H 60 ea 11RF 30 days Coding Level of Care Code Est Pt Level 4 (18424) Diagnoses Dyspnea on exertion R06.00 Chronic cough R05.3 Cough type: chronic Chronic rhinitis J31.0 Moderate persistent asthma without complication J45.40 Asthma complication type: uncomplicated Asthma persistence: persistent Asthma severity: moderate Time Spent (min) 18
[2024-04-10 09:32] VITALS: PULSE 60; O2SAT 95; BMI 36.0
== END 2024-04-10 09:58 | disposition home or self-care (01) ==
PROVIDERS: PCP Internal Medicine; Visit Provider Hospitalist
DX: R06.00 Dyspnea, unspecified (principal); R05.3 Chronic cough; J31.0 Chronic rhinitis; J45.40 Moderate persistent asthma, uncomplicated
CPT/HCPCS: 99214

== ENCOUNTER → 2024-04-10 09:25 | Outpatient (BNVA) | payer MEDICARE, OTHER, SELFPAY | PROVIDERS: PCP Internal Medicine; Visit Provider Hospitalist | DX: R06.00 Dyspnea, unspecified (principal); R05.3 Chronic cough; J45.40 Moderate persistent asthma, uncomplicated; J31.0 Chronic rhinitis | CPT/HCPCS: 99212 ==